=== PATIENT | male | born 1985 | race Caucasian/White ===

== ENCOUNTER 2021-09-10 08:53 | Inpatient (IN) | payer MEDICARE, MEDICAID ==
[~2021-09-10] VITALS: Ht 175.3 cm; Wt 99.8 kg
[2021-09-10 10:39] LABS: HEMATOCRIT. 29.6 % (42.0-52.0); HEMOGLOBIN. 10.5 g/dL (14.0-18.0); MEAN CORPUSCULAR HEMOGLOBIN 30.3 pg (28.0-32.0); MEAN CORPUSCULAR VOLUME 85.8 fL (80.0-94.0); PLATELET 141 x1000/uL (130-400); RED BLOOD CELL COUNT 3.45 mill/uL (4.7-6.1)
[2021-09-10 10:44] LABS: CHLORIDE 98 mEq/L (98-107)
[2021-09-10 10:48] LABS: INR 0.9; PROTHROMBIN TIME 9.8 sec (9.6-11.0)
[2021-09-10] MEDS ORDERED: POTASSIUM CHLORIDE 20MEQ TABLET SR PO ONE (11:00)
[2021-09-10 11:37] LABS: PLATELET ESTIMATE NORMAL
[2021-09-10] MEDS ORDERED: ACETAMINOPHEN 325MG TABLET PO ONE (11:45)
[2021-09-10] MEDS ORDERED: ACETAMINOPHEN 325MG TABLET PO PRN ×2 (14:00)
[2021-09-10] MEDS ORDERED: DIPHENHYDRAMINE 50MG/ML VIAL IV PRN (14:00)
[2021-09-10] MEDS ORDERED: DOCUSATE SODIUM 100MG CAPSULE PO PRN (14:00)
[2021-09-10] MEDS: ENOXAPARIN 40MG/0.4ML SYR SUBCUT SCH (14:00)
[2021-09-10] MEDS ORDERED: NITROGLYCERIN 0.4MG TABLET SL SL PRN (14:00)
[2021-09-10] MEDS ORDERED: ONDANSETRON HCL 4MG/2ML INJ IV PRN (14:00)
[2021-09-10] MEDS ORDERED: IPRATROPIUM/ALBUTEROL 0.5-3(2.5)MG/3ML NEB NEB PRN (14:00)
[2021-09-10] MEDS ORDERED: MAGNESIUM/ALUMINUM HYDROXIDE/SIMETHICONE 30ML UDC PO PRN (14:00)
[2021-09-10] MEDS ORDERED: GUAIFENESIN 200MG/10ML SUGAR FREE UDC PO PRN (14:00)
[2021-09-10 17:17] LABS: CREATINE KINASE MB FRACTION 6.1 ng/mL (0.5-3.6)
[2021-09-10] MEDS: SEVELAMER CARBONATE 800 MG TABLET PO SCH (17:45)
[2021-09-10 18:04] LABS: HEPATITIS B SURFACE ANTIGEN NEGATIVE
[2021-09-10] MEDS: ZOLPIDEM TARTRATE 5MG TABLET PO PRN (21:37)
[2021-09-10] MEDS: FAMOTIDINE 20MG TABLET PO SCH (21:37)
[2021-09-10 22:08] LABS: CREATINE KINASE MB FRACTION 6.4 ng/mL (0.5-3.6)
[2021-09-10 22:20] VITALS: BP 140/86
[2021-09-10 22:22] VITALS: BP 140/86
[2021-09-10] MEDS ORDERED: HYDR-4001 (22:46)
[2021-09-10] MEDS ORDERED: SULF1TAB44 (22:46)
[2021-09-10] MEDS ORDERED: CEPH500C2 (22:46)
[2021-09-10] MEDS ORDERED: DOLU1TAB (22:46)
[2021-09-10] MEDS ORDERED: HYDR-4135 (22:46)
[2021-09-10] MEDS ORDERED: CALC667C (22:46)
[2021-09-10] MEDS ORDERED: ATOR20TA65 (22:46)
[2021-09-10] MEDS ORDERED: EMPA10TA (22:46)
[2021-09-10] MEDS ORDERED: LISI20TA31 (22:46)
[2021-09-11] VITALS: BP 117/49
[2021-09-11] MEDS ORDERED: ASPI-1497 MT (00:54)
[2021-09-11] MEDS ORDERED: ZOLP5TAB2 MT (00:54)
[2021-09-11] MEDS ORDERED: SEVE800T8 MT (00:55)
[2021-09-11] MEDS ORDERED: INSU100I28 SQ (00:56)
[2021-09-11 04:00] VITALS: BP 113/58
[2021-09-11 06:48] LABS: BASOPHILS % 0.9 % (0.0-2.0); CHLORIDE 97 mEq/L (98-107); EOSINOPHILS % 9.4 % (0.0-5.0); HEMATOCRIT. 27.3 % (42.0-52.0); HEMOGLOBIN. 9.5 g/dL (14.0-18.0); LYMPHOCYTES % 28.3 % (20.0-50.0); MEAN CORPUSCULAR VOLUME 86.4 fL (80.0-94.0); MEAN PLATELET VOLUME 7.7 fl (7.4-10.4); MONOCYTES % 8.1 % (2.0-8.0); NEUTROPHILS % 53.3 % (40.0-76.0); PLATELET 129 x1000/uL (130-400); RED BLOOD CELL COUNT 3.15 mill/uL (4.7-6.1); RED CELL DISTRIBUTION WIDTH 15.9 % (11.6-14.6)
[2021-09-11] MEDS: SEVELAMER CARBONATE 800 MG TABLET PO SCH (07:09)
[2021-09-11 08:00] VITALS: BP 120/79
[2021-09-11] MEDS ORDERED: DEXTROSE 50% WATER 50ML SYRINGE IV PRN (08:45)
[2021-09-11] MEDS: FOLIC ACID/VITAMIN B COMP W-C TABLET PO SCH (09:05)
[2021-09-11] MEDS: ASPIRIN 325MG EC TABLET PO SCH (09:05)
[2021-09-11 12:00] VITALS: BP 203/123
[2021-09-11] MEDS: BLOOD SUGAR DIAGNOSTIC STRIP TEST SCH ×3 (12:35→20:53)
[2021-09-11] MEDS: CALCIUM ACETATE 667MG CAPSULE PO SCH ×2 (13:07→17:48)
[2021-09-11] MEDS: INSULIN LISPRO 100 UNITS/ML SUBCUT SCH ×3 (13:09→21:05)
[2021-09-11] MEDS: CLONIDINE 0.1MG TABLET PO PRN ×2 (13:29→21:06)
[2021-09-11] MEDS: ENOXAPARIN 40MG/0.4ML SYR SUBCUT SCH (15:17)
[2021-09-11 16:00] VITALS: BP 150/84
[2021-09-11] MEDS: FAMOTIDINE 20MG TABLET PO SCH (20:42)
[2021-09-11 20:45] VITALS: BP 183/95
[2021-09-11] MEDS: ZOLPIDEM TARTRATE 5MG TABLET PO PRN (20:53)
[2021-09-12] VITALS (7 sets, daily range): BP systolic 145–192; BP diastolic 78–107
[2021-09-12] MEDS: BLOOD SUGAR DIAGNOSTIC STRIP TEST SCH ×4 (06:21→21:00)
[2021-09-12] MEDS: INSULIN LISPRO 100 UNITS/ML SUBCUT SCH ×4 (06:21→21:00)
[2021-09-12 07:33] LABS: EOSINOPHILS % 12.5 % (0.0-5.0); HEMATOCRIT. 25.8 % (42.0-52.0); HEMOGLOBIN. 9.2 g/dL (14.0-18.0); LYMPHOCYTES % 31.8 % (20.0-50.0); MEAN CORPUSCULAR HEMOGLOBIN 30.5 pg (28.0-32.0); MEAN CORPUSCULAR VOLUME 85.9 fL (80.0-94.0); MEAN PLATELET VOLUME 8.3 fl (7.4-10.4); MONOCYTES % 7.3 % (2.0-8.0); NEUTROPHILS % 47.4 % (40.0-76.0); PLATELET 132 x1000/uL (130-400); RED BLOOD CELL COUNT 3.01 mill/uL (4.7-6.1); RED CELL DISTRIBUTION WIDTH 15.8 % (11.6-14.6)
[2021-09-12] MEDS: CALCIUM ACETATE 667MG CAPSULE PO SCH ×3 (08:03→16:54)
[2021-09-12] MEDS: ASPIRIN 325MG EC TABLET PO SCH (08:18)
[2021-09-12] MEDS: FOLIC ACID/VITAMIN B COMP W-C TABLET PO SCH (08:18)
[2021-09-12] MEDS: ENOXAPARIN 40MG/0.4ML SYR SUBCUT SCH (15:25)
[2021-09-12] MEDS: ZOLPIDEM TARTRATE 5MG TABLET PO PRN (23:45)
[2021-09-12] MEDS: FAMOTIDINE 20MG TABLET PO SCH (23:45)
[2021-09-13] VITALS: BP_SYST 191; BP_SYST 193; BP_SYST 198; BP_DIAS 104; BP_DIAS 92; BP_DIAS 94
[2021-09-13 04:00] VITALS: BP 174/78
[2021-09-13] MEDS: CLONIDINE 0.1MG TABLET PO PRN (04:36)
[2021-09-13] MEDS: INSULIN LISPRO 100 UNITS/ML SUBCUT SCH (06:35)
[2021-09-13] MEDS: BLOOD SUGAR DIAGNOSTIC STRIP TEST SCH (06:35)
[2021-09-13] MEDS: CALCIUM ACETATE 667MG CAPSULE PO SCH (06:36)
[2021-09-13 08:00] VITALS: BP_SYST 158; BP_SYST 159; BP_SYST 163; BP_DIAS 70; BP_DIAS 72; BP_DIAS 75
[2021-09-13] MEDS: ASPIRIN 325MG EC TABLET PO SCH (09:36)
[2021-09-13] MEDS: FOLIC ACID/VITAMIN B COMP W-C TABLET PO SCH (09:36)
[2021-09-13 11:14] VITALS: BP 159/72
== END 2021-09-13 11:37 | disposition home or self-care (01) | DRG 871 ==
LOC: ER 08:53 → 5WST 12:29 → EDBEDREQSVC 12:33 → EDBEDREQTM 12:33 → EDBEDREQ 12:33 → SUPCPDRO 12:46 → ENRESERV 21:44
PROVIDERS: ADMIT Internal Medicine; ATTEND Internal Medicine
PROC: 5A1D70Z Performance of Urinary Filtration, Intermittent, Less than 6 Hours Per Day (ICD-10-PCS; principal; 2021-09-12)
DX: A41.9 Sepsis, unspecified organism (principal); N18.6 End stage renal disease; I12.0 Hypertensive chronic kidney disease with stage 5 chronic kidney disease or end stage renal disease; E83.51 Hypocalcemia; D63.8 Anemia in other chronic diseases classified elsewhere; E87.6 Hypokalemia; B19.20 Unspecified viral hepatitis C without hepatic coma; Z20.822 Contact with and (suspected) exposure to COVID-19; Z99.2 Dependence on renal dialysis
CPT/HCPCS: 36415; 71045; 80048; 80053; 82550; 82553; 82962; 83036; 83605; 83735; 84100; 84145; 84484; 85025; 86705; 86709; 86803; 87340; 87426; 93005; 93306; 93970; 99291; J1650; J1815

== ENCOUNTER 2022-11-13 08:05 | Inpatient (IN) | payer MEDICARE, MEDICAID ==
[~2022-11-13] VITALS: Ht 175.3 cm; Wt 104.3 kg
[2022-11-13] VITALS (8 sets, daily range): BP systolic 128–147; BP diastolic 60–78
[~2022-11-13 08:05] MED LIST: ASPI-1497 MT; ATOR20TA65; CALC667C; CEPH500C2; DOLU1TAB; EMPA10TA PO; HYDR-4001; HYDR-4135 PO; INSU100I28 SQ; LISI20TA31 PO; SEVE800T8 MT; SULF1TAB44; ZOLP5TAB2 MT
[2022-11-13] MEDS ORDERED: ONDANSETRON HCL 4MG/2ML INJ IV STA (08:44)
[2022-11-13] MEDS ORDERED: ONDANSETRON HCL 4MG/2ML INJ IV PRN (09:30)
[2022-11-13] MEDS ORDERED: LISINOPRIL 40MG TABLET PO ONE (09:30)
[2022-11-13] MEDS ORDERED: ACETAMINOPHEN 325MG TABLET PO PRN (09:30)
[2022-11-13] MEDS ORDERED: LABETALOL 5MG/ML SYR 20 MG/4 ML SYRINGE IV ONE (09:30)
[2022-11-13] MEDS ORDERED: CLONIDINE 0.1MG TABLET PO PRN (09:30)
[2022-11-13] MEDS ORDERED: NICARDIPINE 50 MG in SODIUM CHLORIDE 0.9% 230 ML IV PRN ×2 (09:45→14:00)
[2022-11-13] MEDS ORDERED: NALOXONE HCL 0.4MG/ML VIAL IV PRN (09:45)
[2022-11-13] MEDS ORDERED: DEXTROSE 50% WATER 50ML SYRINGE IV PRN (09:45)
[2022-11-13] MEDS ORDERED: ACETAMINOPHEN 325MG TABLET PO ONE (09:45)
[2022-11-13 10:13] LABS: CHLORIDE 99 mEq/L (98-107)
[2022-11-13 10:15] LABS: EOSINOPHILS % 3.4 % (0.0-5.0); HEMATOCRIT. 35.5 % (42.0-52.0); HEMOGLOBIN. 12.2 g/dL (14.0-18.0); LYMPHOCYTES % 10.7 % (20.0-50.0); MEAN CORPUSCULAR HEMOGLOBIN 30.8 pg (28.0-32.0); MEAN CORPUSCULAR VOLUME 89.6 fL (80.0-94.0); MEAN PLATELET VOLUME 7.5 fl (7.4-10.4); MONOCYTES % 9.3 % (2.0-8.0); NEUTROPHILS % 75.6 % (40.0-76.0); PLATELET 122 x1000/uL (130-400); RED BLOOD CELL COUNT 3.96 mill/uL (4.7-6.1); RED CELL DISTRIBUTION WIDTH 17.5 % (11.6-14.6)
[2022-11-13] MEDS ORDERED: AMLODIPINE 5MG TABLET PO NR (12:15)
[2022-11-13] MEDS: SEVELAMER CARBONATE 800 MG TABLET PO SCH ×2 (13:00→17:00)
[2022-11-13] MEDS: HYDROCODONE/ACETAMINOPHEN 5/325MG TABLET PO PRN ×2 (13:38→23:15)
[2022-11-13] MEDS ORDERED: HYDRALAZINE HCL 50MG TABLET PO SCH (14:00)
[2022-11-13 14:52] LABS: HEPATITIS B SURFACE ANTIGEN NEGATIVE
[2022-11-13] MEDS: HYDRALAZINE HCL 50MG TABLET PO SCH (15:03)
[2022-11-13] MEDS: BLOOD SUGAR DIAGNOSTIC STRIP TEST SCH (16:37)
[2022-11-13] MEDS: INSULIN LISPRO 100 UNITS/ML SUBCUT SCH ×2 (16:37→18:20)
[2022-11-13] MEDS: LISINOPRIL 20MG TABLET PO SCH (17:00)
[2022-11-13] MEDS: INSULIN GLARGINE 100 UNITS/ML SUBCUT SCH (22:00)
[2022-11-14] MEDS: HYDRALAZINE HCL 50MG TABLET PO SCH ×4 (00:01→22:15)
[2022-11-14] MEDS ORDERED: MORPHINE SULFATE 2 MG/ML CPJ (NOT FOR IM USE) IV PRN (08:30)
[2022-11-14 08:37] LABS: BASOPHILS % 1.2 % (0.0-2.0); EOSINOPHILS % 2.5 % (0.0-5.0); HEMATOCRIT. 35.9 % (42.0-52.0); HEMOGLOBIN. 11.9 g/dL (14.0-18.0); LYMPHOCYTES % 17.1 % (20.0-50.0); MEAN CORPUSCULAR HEMOGLOBIN 30.1 pg (28.0-32.0); MEAN CORPUSCULAR VOLUME 90.8 fL (80.0-94.0); MEAN PLATELET VOLUME 6.9 fl (7.4-10.4); MONOCYTES % 7.1 % (2.0-8.0); NEUTROPHILS % 72.1 % (40.0-76.0); PLATELET 136 x1000/uL (130-400); RED BLOOD CELL COUNT 3.95 mill/uL (4.7-6.1); RED CELL DISTRIBUTION WIDTH 17.1 % (11.6-14.6)
[2022-11-14 08:45] LABS: CHLORIDE 102 mEq/L (98-107)
[2022-11-14] MEDS ORDERED: AMLODIPINE 5MG TABLET PO SCH (09:00)
[2022-11-14] MEDS: LISINOPRIL 20MG TABLET PO SCH ×2 (11:36→19:09)
[2022-11-14] MEDS: LABETALOL HCL 300MG TABLET PO SCH ×3 (13:19→22:15)
[2022-11-14] MEDS: BLOOD SUGAR DIAGNOSTIC STRIP TEST SCH ×3 (13:23→21:00)
[2022-11-14] MEDS ORDERED: HYDROCODONE/ACETAMINOPHEN 5/325MG TABLET PO PRN (14:15)
[2022-11-14 17:00] VITALS: BP 142/76
[2022-11-14] MEDS: INSULIN LISPRO 100 UNITS/ML SUBCUT SCH ×2 (18:10→22:17)
[2022-11-14] MEDS: SEVELAMER CARBONATE 800 MG TABLET PO SCH (19:09)
[2022-11-14] MEDS: INSULIN GLARGINE 100 UNITS/ML SUBCUT SCH (22:17)
[2022-11-15 06:53] LABS: BASOPHILS % 1.4 % (0.0-2.0); EOSINOPHILS % 6.2 % (0.0-5.0); HEMATOCRIT. 32.4 % (42.0-52.0); HEMOGLOBIN. 10.9 g/dL (14.0-18.0); LYMPHOCYTES % 32.3 % (20.0-50.0); MEAN CORPUSCULAR HEMOGLOBIN 30.4 pg (28.0-32.0); MEAN CORPUSCULAR VOLUME 90.3 fL (80.0-94.0); MEAN PLATELET VOLUME 8.1 fl (7.4-10.4); MONOCYTES % 10.2 % (2.0-8.0); NEUTROPHILS % 49.9 % (40.0-76.0); PLATELET 175 x1000/uL (130-400); RED BLOOD CELL COUNT 3.59 mill/uL (4.7-6.1); RED CELL DISTRIBUTION WIDTH 17.2 % (11.6-14.6)
[2022-11-15 08:00] VITALS: BP 169/79
[2022-11-15] MEDS: INSULIN LISPRO 100 UNITS/ML SUBCUT SCH ×3 (08:10→17:19)
[2022-11-15] MEDS: BLOOD SUGAR DIAGNOSTIC STRIP TEST SCH ×3 (08:22→17:19)
[2022-11-15] MEDS: LABETALOL HCL 300MG TABLET PO SCH (08:46)
[2022-11-15] MEDS: SEVELAMER CARBONATE 800 MG TABLET PO SCH ×3 (08:46→17:15)
[2022-11-15] MEDS: LISINOPRIL 20MG TABLET PO SCH ×2 (08:47→16:13)
[2022-11-15] MEDS: AMLODIPINE 5MG TABLET PO SCH ×2 (08:56→16:12)
[2022-11-15] MEDS: HYDRALAZINE HCL 50MG TABLET PO SCH ×2 (09:58→13:02)
[2022-11-15 12:00] VITALS: BP 151/74
[2022-11-15] MEDS ORDERED: HYDR-4135 PO (12:44)
[2022-11-15] MEDS ORDERED: AMLO5TAB88 PO (12:44)
[2022-11-15] MEDS ORDERED: LABE300T36 PO (12:44)
[2022-11-15] MEDS ORDERED: SEVE800T8 PO (12:44)
[2022-11-15 15:54] VITALS: BP 163/83
[2022-11-15 16:00] VITALS: BP 172/88
[2022-11-15] MEDS ORDERED: HYDRALAZINE HCL 50MG TABLET PO NR (17:15)
[2022-11-15] MEDS ORDERED: HYDRALAZINE HCL 100MG TABLET PO SCH (22:00)
== END 2022-11-15 19:14 | disposition home or self-care (01) | DRG 304 ==
LOC: ER 08:05 → MICUSO 11:16 → EDBEDREQ 11:20 → EDBEDREQTM 11:20 → EDBEDREQSVC 11:20 → 7WST 11-14 17:06
PROVIDERS: ADMIT Internal Medicine; ATTEND Internal Medicine
PROC: 5A1D70Z Performance of Urinary Filtration, Intermittent, Less than 6 Hours Per Day (ICD-10-PCS; principal; 2022-11-13)
DX: I16.1 Hypertensive emergency (principal); N18.6 End stage renal disease; I12.0 Hypertensive chronic kidney disease with stage 5 chronic kidney disease or end stage renal disease; E11.22 Type 2 diabetes mellitus with diabetic chronic kidney disease; E78.5 Hyperlipidemia, unspecified; D64.9 Anemia, unspecified; B19.20 Unspecified viral hepatitis C without hepatic coma; G43.909 Migraine, unspecified, not intractable, without status migrainosus; Z20.822 Contact with and (suspected) exposure to COVID-19; I34.0 Nonrheumatic mitral (valve) insufficiency; Z99.2 Dependence on renal dialysis; Z79.899 Other long term (current) drug therapy; Z79.4 Long term (current) use of insulin
CPT/HCPCS: 36415; 80048; 80053; 82962; 83036; 84443; 84484; 85025; 86705; 86709; 86803; 87340; 90935; 93005; 93306; 93970; 99285; J1815; J2270; J3490; J7050